=== PATIENT | female | born 1965 | race African-American/Black ===

== ENCOUNTER 2021-05-06 13:34 | Inpatient (IN) | payer MEDICAID ==
[~2021-05-06] VITALS: Ht 162.6 cm; Wt 114.3 kg
[2021-05-06] MEDS ORDERED: ASPIRIN 81MG TABLET PO ONE (14:15)
[2021-05-06 15:00] LABS: BASOPHILS % 1.5 % (0.0-2.0); EOSINOPHILS % 1.2 % (0.0-5.0); HEMATOCRIT. 36.1 % (36.0-48.0); HEMOGLOBIN. 12.6 g/dL (12.0-16.0); LYMPHOCYTES % 31.5 % (20.0-50.0); MEAN CORPUSCULAR HEMOGLOBIN 31.3 pg (28.0-32.0); MEAN CORPUSCULAR VOLUME 89.5 fL (81.0-99.0); MEAN PLATELET VOLUME 7.7 fl (7.4-10.4); MONOCYTES % 4.9 % (2.0-8.0); NEUTROPHILS % 60.9 % (40.0-76.0); PLATELET 420 x1000/uL (130-400); RED BLOOD CELL COUNT 4.03 mill/uL (4.2-5.4); RED CELL DISTRIBUTION WIDTH 14.7 % (11.6-14.6)
[2021-05-06 15:07] LABS: CHLORIDE 111 mEq/L (98-107)
[2021-05-06 15:33] LABS: PARTIAL THROMBOPLASTIN TIME 36.2 sec (23.4-31.0); PROTHROMBIN TIME 10.9 sec (9.6-11.0)
[2021-05-06] MEDS ORDERED: FUROSEMIDE 20MG/2ML VIAL IVP NR (17:30)
[2021-05-06] MEDS ORDERED: IOHEXOL-350 100 ML BOTTLE ONE (20:06)
[2021-05-06] MEDS ORDERED: ACETAMINOPHEN 325MG TABLET PO PRN (23:45)
[2021-05-06] MEDS ORDERED: IPRATROPIUM/ALBUTEROL 0.5-3(2.5)MG/3ML NEB HHN PRN (23:45)
[2021-05-07] VITALS: BP 140/70
[2021-05-07] MEDS ORDERED: ALBU6.7H15 INH (02:37)
[2021-05-07] MEDS ORDERED: IBUP-2030 MT (02:37)
[2021-05-07] MEDS ORDERED: MOME13HF INH (02:40)
[2021-05-07 04:00] VITALS: BP 100/38
[2021-05-07 06:44] LABS: EOSINOPHILS % 0.8 % (0.0-5.0); HEMATOCRIT. 35.9 % (36.0-48.0); HEMOGLOBIN. 12.2 g/dL (12.0-16.0); LYMPHOCYTES % 22.3 % (20.0-50.0); MEAN CORPUSCULAR HEMOGLOBIN 30.4 pg (28.0-32.0); MEAN CORPUSCULAR VOLUME 89.4 fL (81.0-99.0); MEAN PLATELET VOLUME 7.4 fl (7.4-10.4); MONOCYTES % 4.7 % (2.0-8.0); NEUTROPHILS % 71.2 % (40.0-76.0); PLATELET 391 x1000/uL (130-400); RED BLOOD CELL COUNT 4.02 mill/uL (4.2-5.4); RED CELL DISTRIBUTION WIDTH 14.9 % (11.6-14.6)
[2021-05-07 06:52] LABS: CHLORIDE 108 mEq/L (98-107)
[2021-05-07 07:02] LABS: LDL CHOLESTEROL 92 mg/dL (5-100)
[2021-05-07 07:04] LABS: HDL CHOLESTEROL 57 mg/dL (40-59)
[2021-05-07 08:00] VITALS: BP 130/74
[2021-05-07] MEDS ORDERED: PNEUMOCOCCAL 23-VAL P-SAC VAC 0.5 ML IM ONE (09:00)
[2021-05-07] MEDS: FUROSEMIDE 40MG/4ML VIAL IVP SCH ×2 (09:21→16:44)
[2021-05-07 11:29] LABS: *AMPHETAMINES SCREEN URINE NEGATIVE (NEGATIVE); *BARBITURATES SCREEN URINE NEGATIVE (NEGATIVE); *BENZODIAZEPINES SCREEN URINE NEGATIVE (NEGATIVE); *COCAINE SCREEN URINE NEGATIVE (NEGATIVE); METHADONE URINE SCREEN NEGATIVE (NEGATIVE); OPIATES URINE SCREEN NEGATIVE (NEGATIVE)
[2021-05-07 11:30] LABS: CANNABINOID URINE SCREEN NEGATIVE (NEGATIVE); PHENCYCLIDINE URINE SCREEN NEGATIVE (NEGATIVE)
[2021-05-07 12:00] VITALS: BP 128/71
[2021-05-07] MEDS: POTASSIUM CHLORIDE 20MEQ TABLET SR PO SCH (12:36)
[2021-05-07] MEDS ORDERED: DIPHENHYDRAMINE 50MG/ML VIAL IV PRN (12:45)
[2021-05-07] MEDS ORDERED: LORAZEPAM 0.5MG TABLET PO PRN (14:45)
[2021-05-07] MEDS ORDERED: ACETAMINOPHEN 325MG TABLET PO PRN ×2 (14:45)
[2021-05-07] MEDS ORDERED: HYDROCODONE/ACETAMINOPHEN 5/325MG TABLET PO PRN (14:45)
[2021-05-07] MEDS ORDERED: IPRATROPIUM/ALBUTEROL 0.5-3(2.5)MG/3ML NEB HHN PRN (14:45)
[2021-05-07] MEDS ORDERED: CLONIDINE 0.1MG TABLET PO PRN (14:45)
[2021-05-07] MEDS ORDERED: ONDANSETRON HCL 4MG/2ML INJ IV PRN (14:45)
[2021-05-07] MEDS ORDERED: DOCUSATE SODIUM 100MG CAPSULE PO PRN (14:45)
[2021-05-07] MEDS ORDERED: NALOXONE HCL 0.4MG/ML VIAL IV PRN (15:15)
[2021-05-07 16:00] VITALS: BP 115/68
[2021-05-07 20:00] VITALS: BP 115/63
[2021-05-07] MEDS: ENOXAPARIN 30MG/0.3ML SYR SUBCUT SCH (21:07)
[2021-05-08] VITALS: BP 106/60
[2021-05-08 04:00] VITALS: BP 110/62
[2021-05-08 05:56] LABS: BASOPHILS % 0.9 % (0.0-2.0); EOSINOPHILS % 1.4 % (0.0-5.0); HEMATOCRIT. 36.9 % (36.0-48.0); HEMOGLOBIN. 12.4 g/dL (12.0-16.0); LYMPHOCYTES % 31.4 % (20.0-50.0); MEAN CORPUSCULAR HEMOGLOBIN 30.3 pg (28.0-32.0); MEAN PLATELET VOLUME 7.4 fl (7.4-10.4); MONOCYTES % 4.3 % (2.0-8.0); PLATELET 365 x1000/uL (130-400); RED CELL DISTRIBUTION WIDTH 14.6 % (11.6-14.6)
[2021-05-08 06:15] LABS: CREATINE KINASE 71 IU/L (26-192); LDL CHOLESTEROL 107 mg/dL (5-100)
[2021-05-08 06:17] LABS: HDL CHOLESTEROL 60 mg/dL (40-59)
[2021-05-08 06:20] LABS: CREATINE KINASE MB FRACTION < 1.0 ng/mL (0.5-3.6)
[2021-05-08 08:00] VITALS: BP 136/63
[2021-05-08] MEDS: ENOXAPARIN 30MG/0.3ML SYR SUBCUT SCH ×2 (08:27→21:00)
[2021-05-08] MEDS: FUROSEMIDE 40MG/4ML VIAL IVP SCH (08:27)
[2021-05-08] MEDS: POTASSIUM CHLORIDE 20MEQ TABLET SR PO SCH ×2 (08:27→13:45)
[2021-05-08 12:00] VITALS: BP 131/80
[2021-05-08] MEDS: LOSARTAN POTASSIUM 25 MG TABLET PO SCH (13:52)
[2021-05-08 16:00] VITALS: BP 145/73
[2021-05-08] MEDS: FUROSEMIDE 40MG TABLET PO SCH (16:18)
[2021-05-08] MEDS ORDERED: REGADENOSON 0.4 MG/5 ML IV ONE (17:00)
[2021-05-08 20:00] VITALS: BP 111/63
[2021-05-09] VITALS: BP 93/62
[2021-05-09 04:00] VITALS: BP 122/55
[2021-05-09 06:35] LABS: BASOPHILS % 0.8 % (0.0-2.0); EOSINOPHILS % 1.8 % (0.0-5.0); HEMATOCRIT. 36.8 % (36.0-48.0); HEMOGLOBIN. 12.3 g/dL (12.0-16.0); LYMPHOCYTES % 33.7 % (20.0-50.0); MEAN CORPUSCULAR HEMOGLOBIN 30.1 pg (28.0-32.0); MEAN CORPUSCULAR VOLUME 89.9 fL (81.0-99.0); MEAN PLATELET VOLUME 7.6 fl (7.4-10.4); MONOCYTES % 4.5 % (2.0-8.0); NEUTROPHILS % 59.2 % (40.0-76.0); PLATELET 371 x1000/uL (130-400); RED BLOOD CELL COUNT 4.09 mill/uL (4.2-5.4); RED CELL DISTRIBUTION WIDTH 14.8 % (11.6-14.6)
[2021-05-09] MEDS: FUROSEMIDE 40MG TABLET PO SCH ×2 (06:44→10:16)
[2021-05-09 07:06] LABS: CHLORIDE 106 mEq/L (98-107)
[2021-05-09 08:00] VITALS: BP 113/54
[2021-05-09] MEDS: ENOXAPARIN 30MG/0.3ML SYR SUBCUT SCH (09:00)
[2021-05-09] MEDS: LOSARTAN POTASSIUM 25 MG TABLET PO SCH (10:16)
[2021-05-09] MEDS: POTASSIUM CHLORIDE 20MEQ TABLET SR PO SCH (10:16)
[2021-05-09] MEDS ORDERED: CARVEDILOL 3.125 MG TABLET PO SCH (11:45)
[2021-05-09 12:00] VITALS: BP 127/77
[2021-05-09] MEDS ORDERED: LOSA25TA3 PO (12:29)
[2021-05-09] MEDS ORDERED: COR3 PO (12:29)
[2021-05-09] MEDS ORDERED: FURO40TA5 PO (12:29)
[2021-05-09 12:35] VITALS: BP 127/77
[2021-05-09 16:00] VITALS: BP 130/70
== END 2021-05-09 16:25 | disposition home or self-care (01) | DRG 201 ==
LOC: ER 13:34 → 7EST 20:16 → ENRESERV 21:44 → CANBEDREQ 22:07
PROVIDERS: ADMIT Internal Medicine; ATTEND Internal Medicine
DX: I47.1 Supraventricular tachycardia (principal); J96.00 Acute respiratory failure, unspecified whether with hypoxia or hypercapnia; I50.23 Acute on chronic systolic (congestive) heart failure; I11.0 Hypertensive heart disease with heart failure; E66.9 Obesity, unspecified; J45.909 Unspecified asthma, uncomplicated; M19.90 Unspecified osteoarthritis, unspecified site; I49.3 Ventricular premature depolarization; Z68.41 Body mass index [BMI] 40.0-44.9, adult; Z90.49 Acquired absence of other specified parts of digestive tract; Z95.810 Presence of automatic (implantable) cardiac defibrillator; Z88.8 Allergy status to other drugs, medicaments and biological substances; Z79.1 Long term (current) use of non-steroidal anti-inflammatories (NSAID); Z79.899 Other long term (current) drug therapy
CPT/HCPCS: 36415; 71045; 71275; 78452; 80048; 80053; 80061; 80305; 82550; 82553; 83735; 83880; 84443; 84484; 85025; 85379; 86850; 86900; 90732; 93005; 93017; 93306; 93970; 99285; A9500; J1200; J1650; J1940; Q9967